=== PATIENT | female | born 1965 | race American Indian/Alaskan Native ===

== ENCOUNTER 2016-08-24 22:42 | Emergency (ER) | payer BC ==
[2016-08-25] MEDS ORDERED: ONDANSETRON 4 MG VIAL ONE (01:14)
[2016-08-25] MEDS ORDERED: CEFTRIAXONE 1 GM VIAL ONE (01:15)
[2016-08-25] MEDS ORDERED: SODIUM CHLORIDE 0.9% 100 ML IV ONE (01:15)
[2016-08-25] MEDS ORDERED: SODIUM CHLORIDE 0.9% 1,000 ML ONE (01:15)
[2016-08-25] MEDS ORDERED: DICYCLOMINE 20MG/2ML VIAL IM ONE (02:04)
== END 2016-08-25 02:57 | disposition home or self-care (01) ==
LOC: ER 22:42
CPT/HCPCS: 36415; 80053; 81001; 83690; 85025; 87088; 96361; 96365; 96372; 96375